=== PATIENT | female | born 1980 | race Caucasian/White ===

== ENCOUNTER 2018-09-20 09:31 | Emergency (ER) | payer MEDICAID ==
[~2018-09-20] VITALS: Ht 160 cm; Wt 90.7 kg
[2018-09-20 09:35] VITALS: BP 106/43
--- NOTE | 2018-09-20 09:46 | NUR ---
PATIENT TAKEN TO BED 4 VIA WHEEL CHAIR
--- NOTE | 2018-09-20 09:50 | NUR ---
PT BIB FAMILY TO THE ED WITH THE CHIEF C/O RIGHT GREAT TOE PAIN. SWOLLEN TOE. NO BLEEING OR PUS NOTED AT THIS TIME. PER PT SHE SLIPPED AND RIPPED OFF HER GREAT TOE NAIL YESTERDAY. VISITED [facility] YESTERDAY. NOT TAKING ANY MEDICINE FROM THERE. FAMILY SAYS" WE DISCARDED MEDICINE FROM THERE BECAUSE WE CAME HERE." TOOK TYLENOL THIS MORNING AROUND 5 AM W/O RELIEF OF PAIN. DENES FEVER. DENIES ANY OTHER PROBLEM AT THIS TIME. STATES PAIN OF 10/10 AT THIS TIME. ER MD AWARE.
--- NOTE | 2018-09-20 10:00 | NUR ---
Pt. being seen by SIMON REYES at this time.
--- NOTE | 2018-09-20 10:10 | NUR ---
emt applied shoe to right foot
--- NOTE | 2018-09-20 10:22 | NUR ---
Patient discharged with v/s stable. Written and verbal after care instructions given and explained. Patient verbalized understanding. Wheel Chair Assisted with by caregiver. All questions addressed prior to discharge. Advised to follow up with PMD.
[2018-09-20 10:25] VITALS: BP 114/60
== END 2018-09-20 10:22 | disposition home or self-care (01) ==
LOC: MED 09:31
DX: S91.201A Unspecified open wound of right great toe with damage to nail, initial encounter (principal); E11.9 Type 2 diabetes mellitus without complications; Z88.5 Allergy status to narcotic agent; Z88.8 Allergy status to other drugs, medicaments and biological substances; W22.03XA Walked into furniture, initial encounter; Y93.89 Activity, other specified; Y92.89 Other specified places as the place of occurrence of the external cause; Y99.8 Other external cause status
CPT/HCPCS: 99283

== ENCOUNTER 2018-10-10 13:56 | Emergency (ER) | payer MEDICAID ==
[~2018-10-10] VITALS: Ht 167.6 cm; Wt 93.4 kg
--- NOTE | 2018-10-10 14:00 | NUR ---
W/C TO BED 10
[2018-10-10 14:01] VITALS: BP 110/72
--- NOTE | 2018-10-10 14:38 | NUR ---
BIB SON FROM HOME HX OF BRAIN SUGERY,DM. C/O LOW BLOOD SUGAR & GENERALIZED WEAKNESS AND CHEST PAIN 10/10. BLOOD SUGAR 138 AT THIS TIME.DENIES N/V/D; SKIN IS PINK/WARM/DRY; AWAKE, ALERT. LUNGS CLEAR BL; HR EVEN AND REGULAR; NO SOB, OR COUGH NOTED AT THIS TIME; PATIENT STATES PAIN OF 10/10 AT THIS TIME; PATIENT POSITIONED FOR COMFORT; HOB ELEVATED; BEDRAILS UP X2; BED DOWN. ER MD MADE AWARE OF PT STATUS.
--- NOTE | 2018-10-10 14:38 | NUR ---
received report from wei SOSA, pt staying in bed, pt looks drowsy, introduced myself, pt stated she feels weak, bedside monior shows sr without respiratory distress. will continue to monitor.
--- NOTE | 2018-10-10 14:47 | NUR ---
pt left for ct per tech via [facility].
--- NOTE | 2018-10-10 14:59 | NUR ---
PT BACK TO BED 10
[2018-10-10 15:00] LABS: HEMATOCRIT 43.1 % (36-48); HEMOGLOBIN 15.1 g/dL (12.0-16.0); MEAN CORPUSCULAR HEMOGLOBIN 31 pg (27-31); MEAN CORPUSCULAR HGB CONC 35 g/dL (33-37); MEAN CORPUSCULAR VOLUME 88.2 fL (80-94); PLATELET COUNT (AUTO) 259 K/uL (140-450); RED BLOOD CELL COUNT(AUTO) 4.88 MIL/uL (4.20-5.40); RED CELL DISTRIBUTION WIDTH 12.8 % (11.6-13.7); WHITE BLOOD COUNT (AUTO) 9.1 K/uL (4.8-10.8)
[2018-10-10 15:14] LABS: APPEARANCE,URINE HAZY (CLEAR); BILIRUBIN,URINE 2+ (NEGATIVE); BLOOD, URINE NEGATIVE (NEGATIVE); COLOR,URINE YELLOW (YELLOW); LEUKOCYTE ESTERASE ,URINE NEGATIVE (NEGATIVE); NITRITE, URINE NEGATIVE (NEGATIVE); UGLUCOSE 3+ (NEGATIVE)
[2018-10-10 15:22] LABS: ALBUMIN 3.6 g/dL (3.4-5.0); ANION GAP 9.2 (8-16); ASPARTATE AMINOTRANSFERASE 33 U/L (15-37); CARBON DIOXIDE 31.3 mmol/L (21-32); CHLORIDE 100 mmol/L (98-107); GFR ARICAN-AMERICAN 80 mL/min (>90); GLUCOSE 104 mg/dL (74-106); POTASSIUM 3.5 mmol/L (3.5-5.1); SODIUM SERUM 137 mmol/L (136-145); TOTAL BILIRUBIN 0.4 mg/dL (0.0-1.0); UREA NITROGEN, BLOOD 17 mg/dL (7-18)
[2018-10-10 15:23] LABS: BARBITURATE, URINE NEG. ng/ml (NEG <=200); BENZODIAZEPINE, URINE NEG. ng/mL (NEG <=200); CANNABINOID, URINE NEG. ng/mL (NEG <=50); COCAINE, URINE NEG. ng/mL (NEG <=300); OPIATE, URINE NEG. ng/mL (NEG <=2000); PHENCYCLIDINE SCREEN,URINE NEG. ng/mL (NEG <=25)
[2018-10-10 15:24] LABS: ACETAMINOPHEN < 0.5 ug/ml (10-30); SALICYLATE < 2.8 mg/dL (2.8-20.0)
[2018-10-10 15:25] LABS: EOSINOPHILS % (MANUAL) 2 % (0-4); LYMPHOCYTES % (MANUAL) 47 % (20-46); MONOCYTES % (MANUAL) 6 % (5-12)
--- NOTE | 2018-10-10 15:38 | NUR ---
PT'S SON AT BEDSIDE, PT STATED SHE FEELS BETTER, SOON SHE CAME TO ER, SHE WAS CONFUSED, SHE COULD REMENBER HOW DID SHE COME TO HERE. RIGHT NOW, SHE FEELS MORE AWAKE. PT ALSO STATED PAIN RELIEVED.
--- NOTE | 2018-10-10 16:54 | NUR ---
PT STATED SHE FEELS FINE. SON AT BEDSIDE. PT FINISHED HER DINNER
[2018-10-10 17:07] VITALS: BP 115/70
--- NOTE | 2018-10-10 17:09 | NUR ---
Patient discharged with v/s stable. Written and verbal after care instructions given and explained. Patient verbalized understanding.WHEELCHAIR to car. All questions addressed prior to discharge. Advised to follow up with PMD.
== END 2018-10-10 17:09 | disposition home or self-care (01) ==
LOC: MED 13:56
DX: E11.649 Type 2 diabetes mellitus with hypoglycemia without coma (principal); J45.909 Unspecified asthma, uncomplicated; Z88.5 Allergy status to narcotic agent; Z88.8 Allergy status to other drugs, medicaments and biological substances
CPT/HCPCS: 36415; 70450; 71045; 80053; 80305; 81003; 81025; 82550; 82553; 84484; 85025; 93005; 99284; G0480; G0482; Q0092

== ENCOUNTER 2019-07-05 15:25 | Emergency (ER) | payer MEDICAID ==
[~2019-07-05] VITALS: Ht 165.1 cm; Wt 90.7 kg
[2019-07-05 15:31] VITALS: BP 146/80
--- NOTE | 2019-07-05 15:37 | NUR ---
PATIENT WHEELCHAIR ASSISTED TO BED 1.
--- NOTE | 2019-07-05 15:50 | NUR ---
PATIENT PRESENTS TO ED WITH C/O NAUSEA/VOMITING, AND LT EYE PAIN X 1 DAY . PATIENT STATES PAIN OF 10/10 AT THIS TIME; VSS; PATIENT POSITIONED FOR COMFORT; HOB ELEVATED; BEDRAILS UP X2; BED DOWN. ER MD MADE AWARE OF PT STATUS.
--- NOTE | 2019-07-05 15:51 | NUR ---
Patient being evaluated by physician at bedside.
[2019-07-05] MEDS ORDERED: ONDANSETRON 4 MG/2 ML VIAL IVP ONE (15:55)
--- NOTE | 2019-07-05 16:10 | NUR ---
IV INSERTED TO RIGHT HAND 22GA WITH GOOD BLOOD RETURN, PATIENT TOLERATED WELL, LAB COLLECTED AND SENT TO LAB.
[2019-07-05] MEDS ORDERED: TETRACAINE HCL/PF 0.5% OPTH 4 ML BTL OP ONE (16:20)
--- NOTE | 2019-07-05 16:24 | NUR ---
PATIENT IS NOT ABLE TO PROVIDED URINE AT THIS TIME, ED MD AWARE.
[2019-07-05] MEDS ORDERED: KETOROLAC 15 MG/ML VIAL IVP ONE (16:25)
[2019-07-05 16:26] LABS: BASOPHILS # (AUTO) 0.1 K/uL (0.00-0.22); BASOPHILS % (AUTO) 0.7 % (0.0-2.0); EOSINOPHILS # (AUTO) 0.2 K/uL (0-0.4); EOSINOPHILS % (AUTO) 1.9 % (0.0-4.0); HEMATOCRIT 42.8 % (36-48); HEMOGLOBIN 14.6 g/dL (12.0-16.0); LYMPHOCYTES # (AUTO) 3.8 K/uL (2.5-16.5); LYMPHOCYTES % (AUTO) 45.8 % (20.5-51.1); MEAN CORPUSCULAR HEMOGLOBIN 30 pg (27-31); MEAN CORPUSCULAR HGB CONC 34 g/dL (33-37); MEAN CORPUSCULAR VOLUME 88.1 fL (80-94); MONOCYTES # (AUTO) 0.3 K/uL (0.8-1.0); MONOCYTES % (AUTO) 3.8 % (1.7-9.3); NEUTROPHILS % (AUTO) 47.8 % (42.2-75.2); PLATELET COUNT (AUTO) 258 K/uL (140-450); RED BLOOD CELL COUNT(AUTO) 4.86 MIL/uL (4.20-5.40); RED CELL DISTRIBUTION WIDTH 13.4 % (11.6-13.7); WHITE BLOOD COUNT (AUTO) 8.3 K/uL (4.8-10.8)
--- NOTE | 2019-07-05 17:18 | NUR ---
UA COLLECTED AT THIS TIME
[2019-07-05 17:45] LABS: ANION GAP 14.8 (8-16); CARBON DIOXIDE 26.3 mmol/L (21-32); CREATININE 0.8 mg/dL (0.6-1.3); POTASSIUM 4.1 mmol/L (3.5-5.1)
--- NOTE | 2019-07-05 17:50 | NUR ---
PATIENT IS ASLEEP IN BED, DENIES PAIN, VSS, NO S/S OF DISTRESS.
[2019-07-05 17:53] LABS: ALBUMIN 3.5 g/dL (3.4-5.0); TOTAL BILIRUBIN 0.4 mg/dL (0.0-1.0)
--- NOTE | 2019-07-05 18:00 | NUR ---
DR. NAYAK DID EYE EXAM AT BEDSIDE, PT TOLERATED WELL.
[2019-07-05] MEDS ORDERED: ACETAMINOPHEN EXTRA STRENGTH 500 MG TAB PO ONE (18:30)
[2019-07-05 18:48] VITALS: BP 128/76
--- NOTE | 2019-07-05 18:48 | NUR ---
Patient discharged TO HOME. Written and verbal after care instructions given and explained. Rx of ZOFRAN AND TYLENOL given. Patient educated on indication of medication including possible reaction and side effects. All questions addressed prior to discharge. IV REMOVED, ID band removed. Patient advised to follow up with PMD.
== END 2019-07-05 18:48 | disposition home or self-care (01) ==
LOC: MED 15:25
DX: R11.0 Nausea (principal); R10.9 Unspecified abdominal pain
CPT/HCPCS: 36415; 80053; 81002; 81025; 82803; 83690; 84484; 85025; 93005; 96374; 96375; 99284; J1885; J2405

== ENCOUNTER 2019-07-07 17:11 | Emergency (ER) | payer MEDICAID ==
[~2019-07-07] VITALS: Ht 165.1 cm; Wt 90.7 kg
[2019-07-07 17:38] VITALS: BP 135/76
[2019-07-07 18:28] LABS: BASOPHILS % (AUTO) 0.3 % (0.0-2.0); EOSINOPHILS # (AUTO) 0.1 K/uL (0-0.4); EOSINOPHILS % (AUTO) 1.5 % (0.0-4.0); HEMATOCRIT 44.2 % (36-48); HEMOGLOBIN 15.1 g/dL (12.0-16.0); LYMPHOCYTES # (AUTO) 2.5 K/uL (2.5-16.5); LYMPHOCYTES % (AUTO) 32.3 % (20.5-51.1); MEAN CORPUSCULAR HEMOGLOBIN 30 pg (27-31); MEAN CORPUSCULAR HGB CONC 34 g/dL (33-37); MEAN CORPUSCULAR VOLUME 88.9 fL (80-94); MONOCYTES # (AUTO) 0.2 K/uL (0.8-1.0); MONOCYTES % (AUTO) 3.1 % (1.7-9.3); NEUTROPHILS # (AUTO) 4.8 K/uL (1.8-7.7); NEUTROPHILS % (AUTO) 62.8 % (42.2-75.2); PLATELET COUNT (AUTO) 274 K/uL (140-450); RED BLOOD CELL COUNT(AUTO) 4.98 MIL/uL (4.20-5.40); RED CELL DISTRIBUTION WIDTH 13.3 % (11.6-13.7); WHITE BLOOD COUNT (AUTO) 7.6 K/uL (4.8-10.8)
[2019-07-07 18:44] LABS: ALBUMIN 3.7 g/dL (3.4-5.0); ANION GAP 8.2 (8-16); CARBON DIOXIDE 29.2 mmol/L (21-32); CREATININE 1.1 mg/dL (0.6-1.3); POTASSIUM 4.4 mmol/L (3.5-5.1); TOTAL BILIRUBIN 0.5 mg/dL (0.0-1.0)
[2019-07-07] MEDS ORDERED: METOCLOPRAMIDE 10 MG TAB PO ONE (19:20)
[2019-07-07] MEDS ORDERED: KETOROLAC 30 MG/ML VIAL IM ONE (19:20)
--- NOTE | 2019-07-07 19:40 | NUR ---
39 YEAR OLD FEMALE COMPLAINS OF LEFT EYE PAIN THAT HAS BEEN GRADUALLY SWELLING FOR THE PAST WEEK. PATIENT STATES THAT SHE FELL AND HIT THE BACK OF HER HEAD ON SUNDAY AND SHE HAS BEEN NAUSEA AND SOME VOMITTING EVER SINCE. PATIENT STATES THAT SHE HAS A HEADACHE AND IS NON RELIEVED BY PAIN MEDICATIONS. SON AT BEDSIDE. PATIENT ALERT AND ORIENTED, BREATHING EVEN AND UNLABORED, SKIN WARM AND DRY. BED IN LOWEST POSITION, LOCKED, BED RAIL UPX1. PMH - DM2, ASTHMA, LOW BP ALLERGIES - MORPHINE, METFORMIN, ISOSORBIDE
[2019-07-07] MEDS ORDERED: INSULIN REGULAR, HUMAN 100 UNIT/ML VIAL SUBQ ONE (19:55)
--- NOTE | 2019-07-07 20:33 | NUR ---
PT ALERT AND AWAKE, BREATHING EVEN AND UNLABORED
[2019-07-07] MEDS ORDERED: fentaNYL 0.05 MG/ML VIAL NS ONE (21:25)
--- NOTE | 2019-07-07 22:04 | NUR ---
PATIENT ALERT AND AWAKE, BREATHING EVEN AND UNLABORED
[2019-07-07] MEDS ORDERED: NACL 0.9% 2,000 ML IV ONE (22:20)
--- NOTE | 2019-07-07 23:43 | NUR ---
PATIENT ALERT AND AWAKE, BREATHING EVEN AND UNLABORED
[2019-07-07 23:50] VITALS: BP 107/58
--- NOTE | 2019-07-07 23:50 | NUR ---
Patient discharged with v/s stable. Pt states pain reduced to a tollerable 2/10. Written and verbal after care instructions given and explained. Patient alert, oriented and verbalized understanding of instructions. Ambulatory with steady gait. All questions addressed prior to discharge. ID band removed. Patient advised to follow up with PMD and when to return to ER. Rx of [place] given. Patient educated on indication of medication including possible reaction and side effects. Opportunity to ask questions provided and answered.
== END 2019-07-07 23:50 | disposition home or self-care (01) ==
LOC: MED 17:11
DX: E11.65 Type 2 diabetes mellitus with hyperglycemia (principal); R51 Headache; H57.12 Ocular pain, left eye; J45.909 Unspecified asthma, uncomplicated; Z88.5 Allergy status to narcotic agent; Z88.8 Allergy status to other drugs, medicaments and biological substances
CPT/HCPCS: 36415; 70450; 70486; 71045; 80053; 81002; 81025; 83690; 84484; 85025; 96360; 96372; 99284; J1815; J1885; J3010; J7030; J8597

== ENCOUNTER 2019-07-08 20:30 | Emergency (ER) | payer MEDICAID ==
[~2019-07-08] VITALS: Ht 165.1 cm; Wt 90.7 kg
[2019-07-08 20:32] VITALS: BP 148/79
[2019-07-08 21:46] VITALS: BP 148/79
== END 2019-07-08 21:46 | disposition home or self-care (01) ==
LOC: MED 20:30
DX: R51 Headache (principal); E11.9 Type 2 diabetes mellitus without complications; H35.60 Retinal hemorrhage, unspecified eye; Z88.5 Allergy status to narcotic agent; Z88.8 Allergy status to other drugs, medicaments and biological substances
CPT/HCPCS: 99283

== ENCOUNTER 2021-10-26 15:26 | Emergency (ER) | payer MEDICAID ==
[~2021-10-26] VITALS: Ht 170.2 cm; Wt 86.2 kg
[2021-10-26 15:45] VITALS: BP 119/67
--- NOTE | 2021-10-26 15:51 | NUR ---
PT W/C ASSISTED TO BED 11.
[2021-10-26] MEDS ORDERED: ACETAMINOPHEN 325 MG TAB PO ONE (16:35)
--- NOTE | 2021-10-26 16:55 | NUR ---
41 y/o female, pt states she was seen at [facility] was dx with left wrist and right ankle fx 2 weeks ago. pt is coming for a recheck at this time with increased pain. sammarinese speaking, a&o x4 does not ambulate. lungs clear bl, heart rate even and regular. pt denies any fever, cp, sob, or cough at this time. pt states pain is 10/10 at this time. patient positioned for comfort. hob elevated. bed down. ermd made aware of pt. pmh: dm2 allergy: isosorbide, metformin, morphine
--- NOTE | 2021-10-26 16:58 | NUR ---
X-Ray at bedside.
[2021-10-26] MEDS ORDERED: BACITRACIN OINT 500 UNITS/GM PKT TP ONE ×2 (17:54→17:55)
--- NOTE | 2021-10-26 18:00 | NUR ---
PT'S LEFT LEG WAS WRAPPED WITH NONADHERENT DRESSING AND BACITRACIN THEN SPLINTED WITH A SHORT POSTERIOR SPLINT.
[2021-10-26 18:54] VITALS: BP 119/67
--- NOTE | 2021-10-26 18:54 | NUR ---
Patient discharged with v/s stable. Written and verbal after care instructions given and explained. Patient verbalized understanding. Wheel Chair Assisted with son to car. All questions addressed prior to discharge. Advised to follow up with PMD. work note provided
== END 2021-10-26 18:50 | disposition home or self-care (01) ==
LOC: MED 15:26
DX: S92.354A Nondisplaced fracture of fifth metatarsal bone, right foot, initial encounter for closed fracture (principal); S93.401A Sprain of unspecified ligament of right ankle, initial encounter; J45.909 Unspecified asthma, uncomplicated; E11.9 Type 2 diabetes mellitus without complications; Z88.5 Allergy status to narcotic agent; Z88.8 Allergy status to other drugs, medicaments and biological substances; W19.XXXA Unspecified fall, initial encounter; Y93.89 Activity, other specified; Y92.89 Other specified places as the place of occurrence of the external cause; Y99.8 Other external cause status
CPT/HCPCS: 29515; 73610; 73630; 99284; Q0092